=== PATIENT | female | born 1965 | race Caucasian/White ===

== ENCOUNTER → 2016-06-14 | Outpatient (CLI) | payer BC ==
[~2016-06-14] MED LIST: ATOR-22 PO; EMPA1TAB3 PO; ESCI10TA17 PO; GLC5 PO; GLIP-197 PO; GLIP10TA9 PO; METF-384 PO; NUTR-218 PO; TAMO20TA9 PO
[2016-06-14 13:39] VITALS: BP 105/68; PULSE 76; TEMP 36.7; O2SAT 96
--- NOTE | 2016-06-14 16:17 | Radiation Oncology Follow-Up ---
Radiation Oncology Follow-Up Date of Visit Jun 14, 2016. (oL Jaramillo PA-C) Reason For Visit 6 month follow-up (Lo Jaramillo PA-C) Radiation Completion Date 11/09/15 (Lo Jaramillo PA-C) Diagnosis (1) Ductal carcinoma in situ (DCIS) of breast Status: Resolved Onset Date: 07/17/2015 Stage: 0 Permanent Comment: DIAGNOSIS:Left breast, DCIS, low grade, ER/SD positive, Tis , stage 0 TREATMENT: 1. Lumpectomy - 08/10/2015 2. Biopsy 07/17/2015 3 status post completion of radiation therapy 11/09/2015 received 5040 cGy Stopped early at patient's request due to radiation dermatitis. 4. Initiation of tamoxifen, stopped due to side effects, medication was taken for 4 months Last Edited By: Lo Jaramillo on Jun 14, 2016 16:09 (Lo Jaramillo PA-C) History of Present Illness Ms. Ruggiero is a 50-year-old female with a family history of breast cancer who recently had an abnormal mammogram on 06/22/2015 which revealed suspicious calcifications in the left breast. She underwent biopsies of the areas of suspicion with microcalcifications on 07/19/2015 which only revealed ductal carcinoma in situ in one biopsy site. The tumor was ductal carcinoma in situ, low nuclear grade, cribriform and solid type without central necrosis measuring 3 mm in the greatest dimension. She was then evaluated by Dr. Dennison discuss treatment options. The patient then elected to undergo a lumpectomy which was completed on 08/10/2015. Pathology did not reveal any residual ductal carcinoma in situ but only changes consistent with the previous biopsy site. Microcalcifications were identified. Subsequently, we are now seeing the patient in consultation to discuss the role of adjuvant radiation therapy. The patient will also be seeing Dr. Galloway in consultation discussed the role of adjuvant anti-hormonal therapy. Because of her age it was felt that patient should be treated with conventional therapy. 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 Treatment was stopped early at the patient's request. She received 5040 cGy. Treatment was stopped 11/09/2015. (oL Jaramillo PA-C) Interim History She was seen by medical oncology and started on tamoxifen. She took the medication for 4 months. This causes severe hot flashes and leg cramps. She saw Dr. Galloway and made the decision to stop the medication. She was also having a discomfort in her left breast. This is on the lateral side of the rest and radiated around the inframammary fold area. She has known history of scoliosis. There is discussion that this may be related to her back. She did note that after stopping the tamoxifen the pain resolved. She has noted no masses of the breast or changes of the axilla. She is up-to-date on mammography. She did have a mammogram on 12/29/2015. This showed the left breast has probable scar along the posterior breast at the 9 to 10 o'clock position. Architectural distortion is probably due to prior lumpectomy. Findings are probably benign. A short interval follow-up is recommended in 6 months. This was given a BI-RADS Category 3. (Lo Jaramillo PA-C) Allergies Coded Allergies: Sulfa Antibiotics (Unverified Allergy, Unknown, vomiting, 08/16/15) Home Medications Scheduled Atorvastatin (Lipitor), 20 MG PO QPM Empagliflozin (Jardiance), 25 MG PO DAILY Escitalopram (Lexapro), 10 MG PO DAILY Glipizide (Glipizide Er), 1 TAB PO BIDM Metformin Hcl (Glucophage), 1,000 MG PO BID Nutritional Supplements (Juice Plus Fibre), 1 DOSE PO DAILY Review of Systems Gastrointestinal: Symptoms: WNL Oral: Symptoms: No Problems Respiratory: Symptoms: WNL Urinary: Symptoms: WNL Comments: see below notations Skin: Symptoms: No Problems Breast: Right Upper Arm Measurement: 26.8 Right Mid Arm Measurement: 24.3 Right Wrist Measurement: 16.0 Left Upper Arm Measurement: 26.0 Left Mid Arm Measurement: 22.5 Left Wrist Measurement: 15.5 Arm Dominence: Right (Lo Jaramillo PA-C) Physical Exam Vital Signs Date Time Temp Pulse Resp B/P Pulse Ox O2 Delivery O2 Flow Rate FiO2 06/14/16 13:39 36.7 76 16 105/68 96 Fatigue: None General Appearance: no apparent distress Eyes: normal inspection, EOMI ENT: normal ENT inspection, hearing grossly normal Neck: no adenopathy, thyroid normal Respiratory/Chest: lungs clear, no respiratory distress, no accessory muscle use Breast: Breast examination reveals a well-healed incision of the left breast. There are no masses or tenderness no axillary adenopathy. She has no skin retractions or nipple changes. Using the [place] score cosmesis she has a good outcome. There is some mild resolving hyperpigmentation. The right breast showed no masses or tenderness no axillary adenopathy. Cardiovascular: regular rate, rhythm, no gallop, no murmur Extremities: no pedal edema Neurologic/Psychiatric: no motor/sensory deficits, alert, normal mood/affect Skin: warm/dry, + pertinent finding (multiple areas of psoriatic plaques) Lymphatic: no adenopathy (Lo Jaramillo PA-C) Additional Studies Mammography as reviewed above. (Lo Jaramillo PA-C) Assessment & Plan Plan: She was also seen and examined by Dr. Yu. She'll continue regular follow-up with Dr. Dennison, Dr. Galloway, Dr. Nixon. We asked her to return to our office in 1 year. She may call if she has any questions or concerns in the interim. She is going to be discussing her psoriasis with Dr. Nixon. This has gotten worse of late. She plans to discuss some of the newer treatments that are available. She may call our office if she has any questions or concerns in the interim. (Lo Jaramillo PA-C) I agree with note created by Lo Jaramillo PA-C. I reviewed the patient's chart and information with her. I have examined and evaluated the patient. I reviewed relevant clinical information and answered the patient's and/or family' s questions. (Veeral. Yu MD) Total Time In Follow-Up I spent 20 minutes speaking to the patient forming examination. I spent 15 minutes reviewing information and completing this note. (Lo Jaramillo PA-C) I spent 15 minutes examining and counseling the patient. (Veeral. Yu MD) Copy To Raina Dennison MD; Kendall Nixon M.D.; Rodriguez Galloway M.D. Problem Qualifiers (1) Ductal carcinoma in situ (DCIS) of breast: Laterality: left Qualified Codes: D05.12 - Intraductal carcinoma in situ of left breast
== END | disposition home or self-care (01) ==
LOC: C.ONC 13:24
PROVIDERS: ATTEND Physician Assistant Medical
DX: Z08 Encounter for follow-up examination after completed treatment for malignant neoplasm (principal); Z92.3 Personal history of irradiation; Z85.3 Personal history of malignant neoplasm of breast

== ENCOUNTER → 2016-07-03 | Outpatient (CLI) | payer BC ==
[2016-07-03 13:50] LABS: ALT/SGPT 19 U/L (12-78); AST/SGOT 11 U/L (15-37); BLOOD UREA NITROGEN 22 mg/dl (7-18); BUN/CREATININE RATIO 40.5 (10-20); CALCIUM 8.9 mg/dl (8.5-10.1); CARBON DIOXIDE 23 mmol/L (21-32); CHLORIDE 106 mmol/L (98-107); CHOLESTEROL 166 mg/dl (0-200); CREATININE 0.55 mg/dl (0.60-1.20); GLUCOSE 150 mg/dl (70-99); SODIUM 139 mmol/L (136-145); TRIGLYCERIDES 111 mg/dl (0-150); VERY LOW DENSITY LIPOPROT CALC 22 mg/dl
[2016-07-03 13:56] LABS: CHOLESTEROL/HDL RATIO 3.5; HDL CHOLESTEROL 48 mg/dl; LDL CHOLESTEROL CALCULATED 96 mg/dl
[2016-07-03 13:57] LABS: ESTIMATED AVERAGE GLUCOSE 131 mg/dl; HA1C FLAG Normal (Normal)
== END | disposition home or self-care (01) ==
LOC: C.LABMFLN 08:04
PROVIDERS: ATTEND Family Medicine
DX: E11.9 Type 2 diabetes mellitus without complications (principal); E78.5 Hyperlipidemia, unspecified; D05.12 Intraductal carcinoma in situ of left breast

== ENCOUNTER → 2016-07-04 | Outpatient (CLI) | payer BC ==
[~2016-07-04] MED LIST changes: -GLC5 PO; -GLIP10TA9 PO; -TAMO20TA9 PO
[2016-07-04 13:41] LABS: RATIO 27.9 mcg/mg (0-30.0)
== END | disposition home or self-care (01) ==
LOC: C.LABMFLN 11:53
PROVIDERS: ATTEND Family Medicine
DX: E11.9 Type 2 diabetes mellitus without complications (principal); E78.5 Hyperlipidemia, unspecified; D05.12 Intraductal carcinoma in situ of left breast

== ENCOUNTER → 2016-10-25 | Outpatient (CLI) | payer BC | END | disposition home or self-care (01) | LOC: C.LABMFLN 11:22 | PROVIDERS: ATTEND Physician Assistant | DX: R35.0 Frequency of micturition (principal) ==

== ENCOUNTER → 2017-01-03 | Outpatient (CLI) | payer BC ==
[2017-01-03 13:30] LABS: BLOOD UREA NITROGEN 16 mg/dl (7-18); BUN/CREATININE RATIO 25.5 (10-20); CALCIUM 9.6 mg/dl (8.5-10.1); CARBON DIOXIDE 25 mmol/L (21-32); CHLORIDE 105 mmol/L (98-107); CHOLESTEROL 193 mg/dl (0-200); CREATININE 0.62 mg/dl (0.60-1.20); GLUCOSE 105 mg/dl (70-99); POTASSIUM 4.1 mmol/L (3.5-5.1); SODIUM 139 mmol/L (136-145)
[2017-01-03 13:34] LABS: ALKALINE PHOSPHATASE 83 U/L (45-117); ALT/SGPT 18 U/L (12-78); AST/SGOT 13 U/L (15-37); CHOLESTEROL/HDL RATIO 3.6; HDL CHOLESTEROL 54 mg/dl; LDL CHOLESTEROL CALCULATED 111 mg/dl; TRIGLYCERIDES 140 mg/dl (0-150); VERY LOW DENSITY LIPOPROT CALC 28 mg/dl
== END ==
LOC: C.LABMFLN 07:10
PROVIDERS: ATTEND Family Medicine
DX: E11.9 Type 2 diabetes mellitus without complications (principal); E78.5 Hyperlipidemia, unspecified

== ENCOUNTER → 2017-04-11 | Outpatient (CLI) | payer BC | END | disposition home or self-care (01) | LOC: C.LABMFLN 16:05 | PROVIDERS: ATTEND Family Medicine | DX: M54.5 Low back pain (principal) ==

== ENCOUNTER → 2017-07-04 | Outpatient (CLI) | payer BC ==
[2017-07-04 13:43] LABS: HEMOGLOBIN A1C 7.6 % (4.5-5.6)
[2017-07-04 14:36] LABS: ALBUMIN 3.9 gm/dl (3.4-5.0); ALT/SGPT 20 U/L (12-78); BLOOD UREA NITROGEN 17 mg/dl (7-18); CALCIUM 9.3 mg/dl (8.5-10.1); CARBON DIOXIDE 26 mmol/L (21-32); CHOLESTEROL 183 mg/dl (0-200); CREATININE 0.69 mg/dl (0.60-1.20); GLUCOSE 152 mg/dl (70-99); POTASSIUM 4.1 mmol/L (3.5-5.1); SODIUM 138 mmol/L (136-145)
[2017-07-04 14:39] LABS: ALKALINE PHOSPHATASE 89 U/L (45-117); AST/SGOT 13 U/L (15-37); LDL CHOLESTEROL CALCULATED 101 mg/dl; TOTAL PROTEIN 7.7 gm/dl (6.4-8.2)
[2017-07-04 14:46] LABS: CREATININE RANDOM URINE 59.6 mg/dl
== END | disposition home or self-care (01) ==
LOC: C.LABMFLN 07:42
PROVIDERS: ATTEND Family Medicine
DX: E11.9 Type 2 diabetes mellitus without complications (principal); E78.5 Hyperlipidemia, unspecified

== ENCOUNTER → 2017-07-18 | Outpatient (CLI) | payer BC | END | disposition home or self-care (01) | LOC: C.LABMFLN 09:26 | PROVIDERS: ATTEND Family Medicine | DX: R31.0 Gross hematuria (principal); R10.9 Unspecified abdominal pain; N30.00 Acute cystitis without hematuria ==

== ENCOUNTER → 2017-07-30 | Outpatient (CLI) | payer BC | END | disposition home or self-care (01) | LOC: C.LABMFLN 08:02 | PROVIDERS: ATTEND Family Medicine | DX: R31.0 Gross hematuria (principal); R10.9 Unspecified abdominal pain ==

== ENCOUNTER → 2017-08-15 | Outpatient (CLI) | payer BC | END | disposition home or self-care (01) | LOC: C.LABMFLN 15:00 | PROVIDERS: ATTEND Family Medicine | DX: R31.0 Gross hematuria (principal); R10.9 Unspecified abdominal pain ==

== ENCOUNTER → 2017-11-09 | Outpatient (CLI) | payer BC ==
[2017-11-09 13:12] LABS: HEMOGLOBIN A1C 7.2 % (4.5-5.6)
[2017-11-09 13:37] LABS: ALBUMIN 3.4 gm/dl (3.4-5.0); ALKALINE PHOSPHATASE 90 U/L (45-117); ALT/SGPT 18 U/L (12-78); AST/SGOT 13 U/L (15-37); BLOOD UREA NITROGEN 16 mg/dl (7-18); CALCIUM 8.2 mg/dl (8.5-10.1); CARBON DIOXIDE 22 mmol/L (21-32); CHOLESTEROL 135 mg/dl (0-200); GLUCOSE 123 mg/dl (70-99); LDL CHOLESTEROL CALCULATED 72 mg/dl; SODIUM 138 mmol/L (136-145); TOTAL PROTEIN 7.1 gm/dl (6.4-8.2)
== END | disposition home or self-care (01) ==
LOC: C.LABMFLN 07:17
PROVIDERS: ATTEND Family Medicine
DX: E78.5 Hyperlipidemia, unspecified (principal); E11.9 Type 2 diabetes mellitus without complications; R31.0 Gross hematuria